=== PATIENT | female | born 1975 | race Caucasian/White ===

== ENCOUNTER 2021-11-28 10:07 | Outpatient (CLI) | payer OTHER, SELFPAY ==
[2021-11-28 12:01] LABS: Influenza A QL RT-PCR Negative (Negative); Influenza B QL RT-PCR Negative (Negative); SARS-CoV-2 RNA PCR Positive (Negative)
== END 2021-11-28 10:08 | disposition home or self-care (01) ==
LOC: CHSLAB 10:11
PROVIDERS: PCP Family Medicine; Visit Provider Physician Assistant
DX: U07.1 COVID-19 (principal); R50.9 Fever, unspecified
CPT/HCPCS: 87502; C9803; U0003; U0005

== ENCOUNTER 2021-11-29 12:54 | Outpatient (CLI) | payer OTHER, SELFPAY ==
[2021-11-29 12:58] VITALS: BMI 33.8
[2021-11-29 13:14] VITALS: BP 135/80; PULSE 78; RESP 16; TEMP 36.4; O2SAT 98
[2021-11-29] MEDS: ACETAMINOPHEN 325 MG TABLET 650 MG PO (13:18)
[2021-11-29] MEDS: diphenhydrAMINE HCl CAP 25 MG CAPSULE PO (13:18)
[2021-11-29] MEDS: FAMOTIDINE 20 MG TABLET PO (13:18)
[2021-11-29 14:08] VITALS: BP 128/76; PULSE 74; RESP 14; TEMP 36.3; O2SAT 99
--- NOTE | 2021-11-29 14:09 | PC.NURSE ---
Patient here for the Bamlanivimab+Etesevimab infusion for being covid + and meeting special criteria of need of it. Patient read the consent and education papers and signed. Education on meds given. No concerns. Patient had not been vaccinated. Oral pre meds and IV Bamlanivimab+Etesevimab infusion administered. SEE MAR. Tolerated well No s/sx of reaction noted or reported. Safe exit of hospital.
== END 2021-11-29 12:55 | disposition home or self-care (01) ==
LOC: CHSTREATRM 12:55
PROVIDERS: PCP Nurse Practitioner Family; Visit Provider Nurse Practitioner Family
DX: U07.1 COVID-19 (principal); I10 Essential (primary) hypertension
CPT/HCPCS: A9270; M0245; Q0245

== ENCOUNTER 2022-08-08 10:20 | Outpatient (CLI) | payer OTHER, SELFPAY ==
[2022-08-08 10:35] LABS: Hematocrit 36.4 % (35.0-49.0); Hemoglobin 12.7 g/dL (12.0-15.0); Mean Corpuscular HGB Conc 34.9 g/dL (32.0-36.0); Mean Corpuscular Hemoglobin 31.8 pg (27.0-31.0); Mean Corpuscular Volume 91.2 fL (78.0-102.0); Mean Platelet Volume 8.9 fl (9.2-11.8); Platelet Count Result 272 K/mm3 (150-420); Red Blood Count 3.99 M/mm3 (4.20-5.40); Red Cell Distribution Width 12.3 % (11.6-14.4); White Blood Count 8.1 K/mm3 (4.8-10.8)
[2022-08-08 11:08] LABS: Alanine Aminotransferase 44 U/L (14-59); Albumin Level 3.6 g/dL (3.4-5.0); Alkaline Phosphatase 48 U/L (46-116); Anion Gap 9 mmol/L (8-16); Aspartate Amino Transferase 36 U/L (15-37); Bilirubin,Total 0.4 mg/dL (0.00-1.00); Blood Urea Nitrogen 18 mg/dL (7-18); Calcium 8.7 mg/dL (8.5-10.1); Carbon Dioxide 26 mmol/L (21-32); Chloride 101 mmol/L (98-108); Cholesterol 201 mg/dL (0-200); Estimated Glomerular Filt Rate > 60; Glucose 99 mg/dL (70-99); HDL Direct 27 mg/dL (40-60); Osmolality Calculated 283 mOsm/kg (285-295); Sodium 136 mmol/L (136-145); Total Protein 7.3 g/dL (6.4-8.2)
[2022-08-08 11:13] LABS: Thyroid Stimulating Hormone Reflex 2.75 u/IU/mL (0.36-3.74)
[2022-08-08 11:14] LABS: LDL Cholesterol Calculated 66 mg/dL (<130); LDL Cholesterol Direct 88 mg/dL (0-130); Triglycerides 540 mg/dL (0-150)
== END 2022-08-08 10:21 | disposition home or self-care (01) ==
PROVIDERS: PCP Family Medicine; Visit Provider Family Medicine
DX: Z00.00 Encounter for general adult medical examination without abnormal findings (principal)
CPT/HCPCS: 36415; 80053; 80061; 83721; 84443; 85027

== ENCOUNTER 2025-09-20 07:54 | Outpatient (CLI) | payer OTHER, SELFPAY ==
--- NOTE | ~2025-09-20 | MM_ITS ---
EXAMINATION: MM screening niko BI w leslie HISTORY: Screening TECHNIQUE: Craniocaudal and mediolateral oblique 3-D tomosynthesis images were obtained and synthetic 2-D images were generated. CAD analysis was submitted and interpreted. COMPARISON: No prior mammogram is available for comparison at this institution. BREAST PARENCHYMAL COMPOSITION: Not dense: There are scattered areas of fibroglandular density. FINDINGS: There is no evidence of suspicious mass, calcification, or architectural distortion to suggest malignancy in either breast. There has been no suspicious interval change. IMPRESSION: 1. No mammographic evidence of malignancy. 2. Recommend routine screening mammography in one year. BI-RADS Category 1: Negative Reviewed, dictated and finalized at location O.
== END 2025-09-20 07:55 | disposition home or self-care (01) ==
LOC: CHSIMG 07:56
PROVIDERS: PCP Family Medicine; Visit Provider Obstetrics & Gynecology
DX: Z12.31 Encounter for screening mammogram for malignant neoplasm of breast (principal)
CPT/HCPCS: 77063; 77067